=== PATIENT | male | born 1965 | race Caucasian/White ===

== ENCOUNTER 2017-09-09 18:04 | Emergency (ER) | payer BC ==
--- NOTE | 2017-09-09 19:55 | RAD ---
INDICATION: Hiccups. COMPARISON: There are no prior studies available for comparison. TECHNIQUE: Dual-energy PA and lateral views of the chest were obtained. FINDINGS: The heart is within normal limits in size. Mediastinal and hilar contours appear within normal limits. The lungs are clear. No pleural effusion is present. IMPRESSION: NO EVIDENCE FOR ACTIVE CARDIOPULMONARY DISEASE.
[2017-09-09 20:01] LABS: ABS Basophils 0.1 10^3/ul (0-0.2); ABS Eosinophils 0.2 10^3/ul (0-0.6); ABS Lymphocytes 2.6 10^3/ul (1.0-4.8); ABS Monocytes 0.7 10^3/ul (0-0.8); ABS Neutrophils 7.3 10^3/ul (1.5-7.7); ABS Nucleated RBC 0 10^3/ul; Eosinophil % 2.2 % (0-6); Hematocrit 41 % (42-52); Hemoglobin 14.2 g/dl (14.0-18.0); Lymphocyte % 23.7 % (25-47); Mean Corpuscular HGB Conc 35 g/dl (31-36); Mean Corpuscular Hemoglobin 30 pg (27-31); Mean Corpuscular Volume 86 fL (80-94); Mean Platelet Volume 8.2 um3 (7.4-10.4); Nucleated Red Blood Cells % 0; Platelet Count 208 10^3/ul (150-450); Red Blood Count 4.79 10^6/ul (4.0-5.4); Red Cell Distribution Width 13 % (10.5-15); White Blood Count 10.9 10^3/ul (3.5-10.8)
[2017-09-09 20:07] LABS: INR 0.95 (0.77-1.02)
[2017-09-09 20:18] LABS: EGFR Non-African American 73.4 (>60)
--- NOTE | 2017-09-09 21:42 | ED ---
Aspen Kelley Gabriel, scribed for Viktor Bah MD on 09/09/17 at 1930 . HPI Chest Pain - HPI Summary HPI Summary: This patient is a 52 year old M presenting to [facility] accompanied by his with a chief complaint of intermittent chest tightness since 09-06-17. The patient rates the pain 1/10 in severity. Patient reports intermittent hiccups. - History of Current Complaint Chief Complaint: EDChestPainROMI Time Seen by Provider: 09/09/17 18:16 Hx Obtained From: Patient Onset/Duration: Started Days Ago, Still Present Timing: Intermittent Initial Severity: Mild Current Severity: Mild Pain Intensity: 1 Pain Scale Used: 0-10 Numeric Chest Pain Location: Diffuse Associated Signs and Symptoms: Positive: Other: - hiccups - Allergy/Home Medications Allergies/Adverse Reactions: Allergies Allergy/AdvReac Type Severity Reaction Status Date / Time No Known Allergies Allergy Verified 09/09/17 19:09 PMH/Surg Hx/FS Hx/Imm Hx Endocrine/Hematology History: Reports: Hx Diabetes - pre Denies: Hx Bone Marrow Disease, Hx Systemic Lupus Erythematosus, Hx Thyroid Disease, Hx Anemia Cardiovascular History: Denies: Hx Auto Implanted Cardiovert Defib, Hx Cardiac Arrest, Hx Cardiomegaly, Hx Congenital Heart Disease Respiratory History: Denies: Hx Chronic Bronchitis, Hx Chronic Obstructive Pulmonary Disease (COPD ), Hx Seasonal Allergies GI History: Denies: Hx Gastroesophageal Reflux Disease, Hx Gastrointestinal Bleed Sensory History: Reports: Hx Contacts or Glasses Opthamlomology History: Reports: Hx Contacts or Glasses Neurological History: Denies: Hx CVA Psychiatric History: Denies: Hx Autism, Hx Eating Disorder - Surgical History Surgery Procedure, Year, and Place: none - Immunization History Date of Tetanus Vaccine: unk Date of Influenza Vaccine: none Infectious Disease History: No Infectious Disease History: Denies: Traveled Outside the [place] in Last 30 Days - Family History Known Family History: Positive: Hypertension, Diabetes, Other - CVA - Social History Occupation: Employed Full-time Lives: With Family Alcohol Use: Rare Substance Use Type: Reports: None Smoking Status (MU): Never Smoked Tobacco Review of Systems Negative: Fever Positive: Other - hiccups Positive: Chest Pain All Other Systems Reviewed And Are Negative: Yes Physical Exam - Summary Physical Exam Summary: Appearance: The patient is well-nourished in no acute distress and in no acute pain. Skin: The skin is warm and dry and skin color reflects adequate perfusion. HEENT: The head is normocephalic and atraumatic. The pupils are equal and reactive. The conjunctivae are clear and without drainage. Nares are patent and without drainage. Mouth reveals moist mucous membranes and the throat is without erythema and exudate. The external ears are intact. The ear canals are patent and without drainage. The tympanic membranes are intact. Hiccups Neck: the neck is supple with full range of motion and non-tender. There are no carotid bruits. There is no neck vein distension. Respiratory: Chest is non-tender. Lungs are clear to auscultation and breath sounds are symmetrical and equal. Cardiovascular: Heart is regular rate and rhythm. There is no murmur or rub auscultated. There is no peripheral edema and pulses are symmetrical and equal. Abdomen: The abdomen is soft and non-tender. There are normal bowel sounds heard in all four quadrants and there is no organomegaly palpated. Musculoskeletal: There is no back tenderness noted. Extremities are non-tender with full range of motion. There is good capillary refill. There is no peripheral edema or calf tenderness elicited. Neurological: Patient is alert and oriented to person, place and time. The patient has symmetrical motor strength in all four extremities. Cranial nerves are grossly intact. Deep tendon reflexes are symmetrical and equal in all four extremities. Psychiatric: The patient has an appropriate affect and does not exhibit any anxiety or depression. [facility] Triage Information Reviewed: Yes Vital Signs On Initial Exam: Initial Vitals Temp Pulse Resp BP Pulse Ox 97.6 F 82 16 137/89 97 09/09/17 18:05 09/09/17 18:05 09/09/17 18:05 09/09/17 18:05 09/09/17 18:05 Vital Signs Reviewed: Yes Diagnostics - Vital Signs Vital Signs Temp Pulse Resp BP Pulse Ox 09/09/17 18:05 97.6 F 82 16 137/89 97 - Laboratory Lab Results: Lab Results 09/09/17 09/09/17 09/09/17 Range/Units 19:47 19:47 19:47 WBC 10.9 H (3.5-10.8) 10^3/ul RBC 4.79 (4.0-5.4) 10^6/ul Hgb 14.2 (14.0-18.0) g/dl Hct 41 L (42-52) % MCV 86 (80-94) fL MCH 30 (27-31) pg MCHC 35 (31-36) g/dl RDW 13 (10.5-15) % Plt Count 208 (150-450) 10^3/ul MPV 8.2 (7.4-10.4) um3 Neut % (Auto) 66.9 (38-83) % Lymph % (Auto) 23.7 L (25-47) % Baldwin % (Auto) 6.5 (0-7) % Eos % (Auto) 2.2 (0-6) % Baso % (Auto) 0.7 (0-2) % Absolute Neuts (auto) 7.3 (1.5-7.7) 10^3/ul Absolute Lymphs (auto) 2.6 (1.0-4.8) 10^3/ul Absolute Monos (auto) 0.7 (0-0.8) 10^3/ul Absolute Eos (auto) 0.2 (0-0.6) 10^3/ul Absolute Basos (auto) 0.1 (0-0.2) 10^3/ul Absolute Nucleated RBC 0 10^3/ul Nucleated RBC % 0 INR (Anticoag Therapy) 0.95 (0.77-1.02) Sodium 139 (139-145) mmol/L Potassium 4.2 (3.5-5.0) mmol/L Chloride 104 (101-111) mmol/L Carbon Dioxide 28 (22-32) mmol/L Anion Gap 7 (2-11) mmol/L BUN 18 (6-24) mg/dL Creatinine 1.06 (0.67-1.17) mg/dL Est GFR ( Amer) 94.4 (>60) Est GFR (Non-Af Amer) 73.4 (>60) BUN/Creatinine Ratio 17.0 (8-20) Glucose 141 H (70-100) mg/dL Lactic Acid (0.5-2.0) mmol/L Calcium 9.2 (8.6-10.3) mg/dL Total Bilirubin 0.60 (0.2-1.0) mg/dL AST 15 (13-39) U/L ALT 23 (7-52) U/L Alkaline Phosphatase 67 (34-104) U/L Troponin I 0.00 (<0.04) ng/mL Total Protein 7.1 (6.4-8.9) g/dL Albumin 4.3 (3.2-5.2) g/dL Globulin 2.8 (2-4) g/dL Albumin/Globulin Ratio 1.5 (1-3) Lipase 20 (11.0-82.0) U/L TSH 1.48 (0.34-5.60) mcIU/mL 09/09/17 Range/Units 19:47 WBC (3.5-10.8) 10^3/ul RBC (4.0-5.4) 10^6/ul Hgb (14.0-18.0) g/dl Hct (42-52) % MCV (80-94) fL MCH (27-31) pg MCHC (31-36) g/dl RDW (10.5-15) % Plt Count (150-450) 10^3/ul MPV (7.4-10.4) um3 Neut % (Auto) (38-83) % Lymph % (Auto) (25-47) % Baldwin % (Auto) (0-7) % Eos % (Auto) (0-6) % Baso % (Auto) (0-2) % Absolute Neuts (auto) (1.5-7.7) 10^3/ul Absolute Lymphs (auto) (1.0-4.8) 10^3/ul Absolute Monos (auto) (0-0.8) 10^3/ul Absolute Eos (auto) (0-0.6) 10^3/ul Absolute Basos (auto) (0-0.2) 10^3/ul Absolute Nucleated RBC 10^3/ul Nucleated RBC % INR (Anticoag Therapy) (0.77-1.02) Sodium (139-145) mmol/L Potassium (3.5-5.0) mmol/L Chloride (101-111) mmol/L Carbon Dioxide (22-32) mmol/L Anion Gap (2-11) mmol/L BUN (6-24) mg/dL Creatinine (0.67-1.17) mg/dL Est GFR ( Amer) (>60) Est GFR (Non-Af Amer) (>60) BUN/Creatinine Ratio (8-20) Glucose (70-100) mg/dL Lactic Acid 0.9 (0.5-2.0) mmol/L Calcium (8.6-10.3) mg/dL Total Bilirubin (0.2-1.0) mg/dL AST (13-39) U/L ALT (7-52) U/L Alkaline Phosphatase (34-104) U/L Troponin I (<0.04) ng/mL Total Protein (6.4-8.9) g/dL Albumin (3.2-5.2) g/dL Globulin (2-4) g/dL Albumin/Globulin Ratio (1-3) Lipase (11.0-82.0) U/L TSH (0.34-5.60) mcIU/mL Result Diagrams: 09/09/17 19:47 09/09/17 19:47 Lab Statement: Any lab studies that have been ordered have been reviewed, and results considered in the medical decision making process. - Radiology CXR Radiology Interpretation Completed By: Radiologist - no evidence for acute disease ED physician has reviewed this radiology report. - EKG 18:07 Cardiac Rate: NL EKG Rhythm: Sinus Rhythm - at 81 BPM Ectopy: None Chest Pain Course/Dx - Course Course Of Treatment: Mr. Chun presented with a concern for chest pain. He has had fairly severe hiccups intermittently for days and became concerned about his heart. He did not want any treatment for the hiccups themselves. His W/U including ECG and troponin was negative. - Diagnoses Provider Diagnoses: Hiccups, Chest pain Discharge - Sign-Out/Discharge Documenting (check all that apply): Discharge - Discharge Plan Condition: Stable Disposition: HOME Referrals: Brandyn Mayer MD [Primary Care Provider] - 3 Days Additional Instructions: RETURN TO THE EMERGENCY DEPARTMENT FOR CHANGING OR WORSENING SYMPTOMS - Billing Disposition and Condition Condition: STABLE Disposition: HOME The documentation as recorded by the Aspen duenas Gabriel accurately reflects the service I personally performed and the decisions made by me, Viktor Bah MD.
[2017-09-09 21:51] VITALS: BP 139/91
== END 2017-09-09 21:53 | disposition home or self-care (01) ==
LOC: ED 18:04
DX: R07.9 Chest pain, unspecified (principal); R06.6 Hiccough
CPT/HCPCS: 36415; 71046; 80053; 83605; 83690; 84443; 84484; 85025; 85610; 93005; 99282

== ENCOUNTER 2017-09-13 15:06 | Emergency (ER) | payer BC ==
--- NOTE | 2017-09-13 15:21 | UC ---
Throat Pain/Nasal Partha HPI - HPI Summary HPI Summary: Pt presents with hiccups for the last 5 days. He was in the ER on 09/09 because his hiccups started that day and persisted for hours - he was concerned something was wrong with his heart. Cardiac workup in the ED on 09/09 was negative. Since that time his hiccups have been persisting with breaks of about 1 hour at random times throughout the day and at bedtime. Today his hiccups seemed to be increasing in frequency to the point that he made him feel sick to his stomach and like he had to vomit - he tried to vomit, but could not. After retching with vomiting, his hiccups stopped for about 2 hours - but have returned. He says he has also had a sore throat for the last 5 days. Denies fever, chills, cough, SOB, chest pain, abdominal pain, other n/v/d/c. - History of Current Complaint Hx Obtained From: Patient Severity: Moderate Pain Intensity: 6 Pain Scale Used: 0-10 Numeric <David Langston - Last Filed: 09/13/17 16:32> <Anushka Fagan - Last Filed: 09/13/17 17:57> - History of Current Complaint Stated Complaint: THROAT COMPLAINT Time Seen by Provider: 09/13/17 15:20 - Allergies/Home Medications Allergies/Adverse Reactions: Allergies Allergy/AdvReac Type Severity Reaction Status Date / Time No Known Allergies Allergy Verified 09/09/17 19:09 Home Medications: Home Medications Ibuprofen [Advil] 200 mg PO 09/13/17 [History] PMH/Surg Hx/FS Hx/Imm Hx - Additional Past Medical History Additional PMH: None Previously Healthy: Yes - Surgical History Surgical History: None Surgery Procedure, Year, and Place: none - Family History Known Family History: Positive: Hypertension, Diabetes, Other - CVA - Social History Occupation: Employed Full-time Lives: With Family Alcohol Use: Rare Substance Use Type: None Smoking Status (MU): Never Smoked Tobacco <David Langston - Last Filed: 09/13/17 16:32> Review of Systems Constitutional: Negative Skin: Negative Eyes: Negative ENT: Negative Respiratory: Other - Hiccups Cardiovascular: Negative Gastrointestinal: Negative Genitourinary: Negative Neurovascular: Negative Musculoskeletal: Negative Neurological: Negative Psychological: Negative All Other Systems Reviewed And Are Negative: Yes <David Langston - Last Filed: 09/13/17 16:32> Physical Exam - Summary Physical Exam Summary: GENERAL: NAD. WDWN. Hiccuping every 5 seconds throughout interview and exam. SKIN: No rashes or sores HEENT: Head: AT/NC Throat: Posterior oropharynx without exudates, erythema, or tonsillar enlargement. Uvula midline. NECK: Supple. Nontender. No lymphadenopathy. CHEST: CTAB. No r/r/w. No accessory muscle use. Breathing comfortably and in no distress. CV: RRR. Without m/r/g. Pulses intact. Brisk cap refill. ABDOMEN: Soft. NTTP. No distention or guarding., No organomegaly. No CVA tenderness. Bowel sounds present x4. NEURO: Alert. CN II-XII grossly intact. PSYCH: Age appropriate behavior. Triage Information Reviewed: Yes <David Langston - Last Filed: 09/13/17 16:32> Vital Signs: Initial Vital Signs Temp 98.0 F 09/13/17 15:17 Pulse 84 09/13/17 15:17 Resp 18 09/13/17 15:17 BP 128/96 09/13/17 15:17 Pulse Ox 99 09/13/17 15:17 <Anushka Fagan - Last Filed: 09/13/17 17:57> Throat Pain/Nasal Course/Dx - Course Course Of Treatment: CXR: IMPRESSION: No evidence for acute intrathoracic disease. Negative exam. POC strep negative. EKG NSR 71bpm No ST elevation as read by Dr. Fagan. Repeat CXR and EKG still WNL. He has a follow up with his PCP's office (Dr. Larsen) on 09/16. I will start him on Chlorpromazine 25mg TID up through 09/16 and make sure he keeps that appointment for follow up. To ED for worsening symptoms or adverse effects of the Chlorpromazine - Differential Dx/Diagnosis Provider Diagnoses: Persistent hiccups <David Langston - Last Filed: 09/13/17 16:32> Discharge - Sign-Out/Discharge Documenting (check all that apply): Discharge/Admit/Transfer - Billing Disposition and Condition Condition: STABLE Disposition: HOME <David Langston - Last Filed: 09/13/17 16:32> - Billing Disposition and Condition Condition: STABLE Disposition: HOME <Anushka Fagan - Last Filed: 09/13/17 17:57> - Discharge Plan Condition: Stable Disposition: HOME Prescriptions: chlorproMAZINE TAB* [Thorazine TAB*] 25 mg PO Q8H #12 tab Patient Education Materials: Hiccups (ED) Referrals: Brandyn Mayer MD [Primary Care Provider] - Additional Instructions: If you develop a fever, shortness of breath, chest pain, new or worsening symptoms - please call your PCP or go to the ED. 1) Please keep your follow up appointment with Dr. Larsen on . Attestation Statement User Type: Provider - I was available for consult. This patient was seen by the PRIYA. The patient was not presented to, seen by, or examined by me. -Jamesonj <Anushka Fagan - Last Filed: 09/13/17 17:57>
[2017-09-13 15:23] VITALS: BP 128/96
--- NOTE | 2017-09-13 16:06 | RAD ---
INDICATION: 1 week hiccups. Vomiting today. Multiple days chest pain. COMPARISON: September 09, 2017 TECHNIQUE: Dual energy PA and routine lateral views of the chest were obtained. REPORT: Clear lungs and pleural spaces. Negative for pneumothorax or pneumomediastinum. The heart, pulmonary vasculature, and mediastinal contours are unremarkable. Negative for free air beneath the diaphragm. Unremarkable osseous structures and soft tissue contours. IMPRESSION: No evidence for acute intrathoracic disease. Negative exam.
== END 2017-09-13 16:41 | disposition home or self-care (01) ==
LOC: UCEAST 15:06
DX: J02.9 Acute pharyngitis, unspecified (principal); R06.6 Hiccough; R07.89 Other chest pain; R11.10 Vomiting, unspecified
CPT/HCPCS: 71046; 87651; 93005; 99212; G0463